=== PATIENT | male | born 1950 | race Caucasian/White ===

== ENCOUNTER 2022-10-14 09:24 | Outpatient (CLI) | payer MEDICARE, SELFPAY ==
--- NOTE | ~2022-10-14 | US_ITS ---
US scrotum doppler INDICATION: Right testicular lump TECHNIQUE: Testicular sonogram utilizing grayscale and color Doppler FINDINGS: The testes are normal in size. Prominent right repeat testes. There is a cyst inferior aspe ct of the right testicle measuring 2.7 cm. There is mild mass effect on the testicle and it is diffic ult to determine if this is intratesticular or extratesticular. The right testes measures 4.1 x 2.3 x 3.5 cm centimeters, and the left testis measures 4.9 x 2.2 x 3.3 cm cm. There is a left epididymal c yst measuring 8 mm. There are bilateral varicoceles. Small left hydrocele. IMPRESSION: 1. Cyst inferior aspect of the right testicle measuring up to 2.7 cm with indistinct margins. Due to the size is difficult to determine if the cyst is intratesticular or extratesticular. 2: Left epididymal cyst measuring 8 mm. 3: Bilateral varicoceles. Reviewed, dictated and finalized at location A. S TECHNICIAN/INSTALLER IMPRESSION: 1. Cyst inferior aspect of the right testicle measuring up to 2.7 cm with lucas stinct margins. Due to the size is difficult to determine if the cyst is intrat esticular or extratesticular. 2: Left epididymal cyst measuring 8 mm. 3: Bilateral varicoceles.
== END 2022-10-14 09:25 | disposition home or self-care (01) ==
PROVIDERS: PCP Family Medicine; Visit Provider Nurse Practitioner Family
DX: I86.1 Scrotal varices (principal); N50.3 Cyst of epididymis
CPT/HCPCS: 76870; 93976

== ENCOUNTER 2023-05-14 04:50 | Day surgery (SDC) | payer MEDICARE, SELFPAY ==
[2023-04-29 12:38] VITALS: BMI 31.1
--- NOTE | 2023-05-13 15:05 | PM.HPGS ---
History of Present Illness History of Present Illness Consent: Risks, benefits, and alternatives have been discussed and questions answered. Patient agrees to proceed with procedure. Chief complaint: GERD, neoplasm screening Narrative: Thomas Romero is a 72 year old male Referred for investigation of dysphagia and reflux symptoms. About 5 years ago he underwent EGD and had esophageal dilatation for hypertrophy of the distal esophagus. Subsequent motility study was done but was said to be normal. He is due for colon cancer screening. His mother had colon cancer. Review of Systems Review of Systems: All systems reviewed & are unremarkable except as noted in HPI and below PMFSH Past Medical History Medical History Adult BMI 34.0-34.9 kg/sq m Adverse effect of rvovvssyxti-typdgaapzc-cihzlr inhibitors, initial encounter BMI 31.0-31.9,adult Body mass index [BMI] 36.0-36.9, adult (06/20/19) Body mass index [BMI] 37.0-37.9, adult (05/16/19) BPH w/o urinary obs/LUTS Chest discomfort Chest pain in adult Chronic fatigue Combined arterial insufficiency and corporo-venous occlusive erectile dysfunction Cough due to OBEY inhibitor Dietary counseling and surveillance (11/21/18) Diverticulitis of large intestine without perforation or abscess KATZ (dyspnea on exertion) Edema of both legs Elevated cholesterol Encounter for screening for lipoid disorders Encounter for screening for malignant neoplasm of prostate Enlarged prostate with lower urinary tract symptoms (LUTS) Essential hypertension Family hx of colon cancer Gastro-esophageal reflux disease with esophagitis Gastro-esophageal reflux disease without esophagitis Hymenoptera allergy Obesity (BMI 35.0-39.9 without comorbidity) Other and unspecified hyperlipidemia Overweight (11/20/16) PAT (paroxysmal atrial tachycardia) Pharyngoesophageal dysphagia Polyarthritis Post-traumatic osteoarthritis of left wrist Pure hypercholesterolemia Restless legs syndrome Screening for colon cancer Sinus arrhythmia Urinary incontinence, male, stress Surgical History Surgical History H/O cataract removal with insertion of prosthetic lens History of cholecystectomy History of knee replacement History of surgery on wrist Family History Family History Mother Carcinoma of colon, Onset Age: 77 Father Family history of renal failure Hypertension, Onset Age: 77 Malignant neoplasm of prostate Family history of congestive heart failure, Onset Age: 77 Sibling Family history of heart disease in male family member before age 55 Family history of cardiac disorder Family history of cardiovascular disease Sibling Other Cerebrovascular accident Family history of allergic disorder Family history of coronary artery disease Family history of malignant neoplasm Social History Social History Smoking packs per day: 3 Smoking cigarettes per day: 60.0 Years smoked: 23 Smoking pack-years: 69.00 Smoking status: Former smoker Tobacco type: cigarettes Second hand tobacco smoke exposure: Yes Smoking end date: 11/15/79 Alcohol intake: never Substance use: never Substance use type: does not use Lack of Transportation: No Lack of Food: Never True Current Housing: I Have Housing Concerned About Future Housing: No Difficulty Paying Gas/Electric Bills: No Difficulty Paying for Meds: No Currently Unemployed: No Education: Trade/Vocational Certificate Living arrangements: with family Occupation/Education: retired Additional occupation/education comments: shipping support Gender identity (if verbalized by the patient): Male Spiritual care concerns: No Meds Home Medications and Al
[2023-05-14 10:24] VITALS: BP 128/79; PULSE 63; RESP 18; TEMP 36.3; O2SAT 99; BMI 32.2
[2023-05-14] MEDS: LACTATED RINGERS 1,000 ML 150 ML IV CONT (10:28)
--- NOTE | 2023-05-14 10:57 | WPDANESEPPF ---
Anes - Initial Pre Proc Eval Procedure: Operation Date: 05/14/23 11:15 Proposed Procedures p Esophagogastroduodenoscopy & Screening Colonoscopy - Antony Lee MD Date/Time: 05/14/23 10:57 Surgeon: Antony Lee MD Pre Op Diagnosis: GERD, neoplasm screening Patient Data Age: 72 Gender: M Height: 1.73 m Weight: 96.1 kg Last Vital Signs Temp 97.4 F L 05/14/23 10:24 Pulse 63 05/14/23 10:24 Resp 18 05/14/23 10:24 BP 128/79 05/14/23 10:24 Pulse Ox 99 05/14/23 10:24 O2 Del Method Room Air 05/14/23 10:24 Allergies Allergy/AdvReac Type Severity Reaction Status Date / Time amlodipine Allergy Unknown Unknown Verified 05/14/23 10:22 bee venom protein (honey bee) Allergy Unknown Unknown Verified 05/14/23 10:22 isosorbide Allergy Unknown Unknown Verified 05/14/23 10:22 venom-wasp Allergy Unknown Unknown Verified 05/14/23 10:22 Home Medications Medication Instructions Recorded Confirmed Type epinephrine 0.3 mg/0.3 mL 0.3 mg IM ONCE 09/22/19 04/29/23 History injection, auto-injector (EpiPen) ropinirole 0.25 mg tablet (Requip) 0.25 mg PO DAILY 06/18/20 05/14/23 History cholecalciferol (vitamin D3) 10 10 mcg PO DAILY 07/28/22 05/14/23 History mcg (400 unit) capsule vitamin B complex (B 1 tablet PO DAILY 07/28/22 04/29/23 History Complex-Vitamin B12 tablet) losartan 100 mg tablet 100 mg PO DAILY #90 tabs 10/12/22 05/14/23 Rx hydrochlorothiazide 25 mg tablet 25 mg PO DAILY #90 tabs 11/13/22 05/14/23 Rx hydralazine 50 mg tablet 50 mg PO BID #180 tabs 12/09/22 05/14/23 Rx furosemide 20 mg tablet See Rx Instructions .Route 03/01/23 05/14/23 Rx .COMPLEX #30 tabs carvedilol 6.25 mg tablet See Rx Instructions .Route 04/21/23 05/14/23 Rx .COMPLEX #60 tabs famotidine 40 mg tablet 40 mg PO DAILY 04/29/23 05/14/23 History folic acid 1 mg tablet 1 mg PO DAILY 04/29/23 05/14/23 History mirabegron 25 mg tablet,extended 25 mg PO DAILY 04/29/23 05/14/23 History release 24 hr (Myrbetriq) Patient hx anesthesia problems: none Family hx anesthesia problems: none Results Review: All pre-operative results and documents have been reviewed as part of the pre-operative evaluation. [facility] Past Medical History Medical History Adult BMI 34.0-34.9 kg/sq m Adverse effect of nunsxvjpjzf-iweucnctln-bpsrca inhibitors, initial encounter BMI 31.0-31.9,adult Body mass index [BMI] 36.0-36.9, adult (06/20/19) Body mass index [BMI] 37.0-37.9, adult (05/16/19) BPH w/o urinary obs/LUTS Chest discomfort Chest pain in adult Chronic fatigue Combined arterial insufficiency and corporo-venous occlusive erectile dysfunction Cough due to OBEY inhibitor Dietary counseling and surveillance (11/21/18) Diverticulitis of large intestine without perforation or abscess KATZ (dyspnea on exertion) Edema of both legs Elevated cholesterol Encounter for screening for lipoid disorders Encounter for screening for malignant neoplasm of prostate Enlarged prostate with lower urinary tract symptoms (LUTS) Essential hypertension Family hx of colon cancer Gastro-esophageal reflux disease with esophagitis Gastro-esophageal reflux disease without esophagitis Hymenoptera allergy Obesity (BMI 35.0-39.9 without comorbidity) Other and unspecified hyperlipidemia Overweight (11/20/16) PAT (paroxysmal atrial tachycardia) Pharyngoesophageal dysphagia Polyarthritis Post-traumatic osteoarthritis of left wrist Pure hypercholesterolemia Restless legs syndrome Screening for colon cancer Sinus arrhythmia Urinary incontinence, male, stress Surgical History Surgical History H/O cataract removal with insertion of prosthetic lens History of cholecystectomy History of knee replacement History of surgery on wrist Family History Family History Mother Carcinoma of colon, O
[2023-05-14] MEDS: BENZOCAINE (*SP) 60 ML SPRAY CAN (HURRICAINE) 1 SPRAY MUCOUS MEM (11:10)
--- NOTE | 2023-05-14 11:23 | SUR.OPER ---
EGD ended 111 colonoscopy started 112
[2023-05-14 11:48] VITALS: BP 137/73; PULSE 68; RESP 27; O2SAT 98
[2023-05-14 11:58] VITALS: BP 141/79; PULSE 63; RESP 24; O2SAT 100
[2023-05-14 12:08] VITALS: BP 144/81; PULSE 57; RESP 17; O2SAT 100
== END 2023-05-14 12:33 | disposition home or self-care (01) ==
PROVIDERS: PCP Family Medicine; Visit Provider Internal Medicine Gastroenterology
PROC: 0DJ08ZZ Inspection of Upper Intestinal Tract, Via Natural or Artificial Opening Endoscopic (ICD-10-PCS; CPT 43235; principal; 2023-05-14 11:15)
DX: Z12.11 Encounter for screening for malignant neoplasm of colon (principal); K57.30 Diverticulosis of large intestine without perforation or abscess without bleeding; D12.2 Benign neoplasm of ascending colon; K63.5 Polyp of colon; Z80.0 Family history of malignant neoplasm of digestive organs; K22.2 Esophageal obstruction; K31.7 Polyp of stomach and duodenum; E78.00 Pure hypercholesterolemia, unspecified; I10 Essential (primary) hypertension; K21.9 Gastro-esophageal reflux disease without esophagitis; G25.81 Restless legs syndrome; Z87.891 Personal history of nicotine dependence; E66.9 Obesity, unspecified; Z68.32 Body mass index [BMI] 32.0-32.9, adult
CPT/HCPCS: 43249; 45380; 45385; 88305; C1726; J2704; J7120

== ENCOUNTER 2023-12-08 14:29 | Outpatient (CLI) | payer MEDICARE, SELFPAY ==
--- NOTE | ~2023-12-08 | XR_ITS ---
EXAMINATION: XR chest 2V 12/08/2023 14:48 INDICATION: Chest pain and shortness of breath PROCEDURE: 2 view chest COMPARISON: Comparison to multiple prior studies sequentially, with oldest reviewed study dated 11/30. FINDINGS: The lungs are clear. The cardiomediastinal silhouette is within normal limits. There are no pleural effusions. There is no pneumothorax suspected. IMPRESSION: 1: NO ACUTE CARDIOPULMONARY DISEASE. Reviewed, dictated and finalized at location B. ISH MELTER HELPER
--- NOTE | 2023-12-08 14:47 | ECG_ITS ---
Measurements Intervals [place] Rate: 81 P: [place]: 0 QRS: 11 QRSD: 89 T: 13 QT: 372 QTc: 433 Interpretive Statements SINUS RHYTHM ATRIAL AND VENTRICULAR PREMATURE COMPLEXES VOLTAGE CRITERIA FOR LVH BORDERLINE ECG NO PREVIOUS ECG AVAILABLE FOR COMPARISON Electronically Signed On 12-08-2023 15:14:33 HAM SMOKER by Arslan Finch D.O.
== END 2023-12-08 14:30 | disposition home or self-care (01) ==
PROVIDERS: PCP Family Medicine; Visit Provider Physician Assistant
DX: R07.9 Chest pain, unspecified (principal); R06.02 Shortness of breath
CPT/HCPCS: 71046; 93005

== ENCOUNTER 2023-12-09 13:39 | Outpatient (CLI) | payer MEDICARE, SELFPAY ==
--- NOTE | ~2023-12-09 | CT_ITS ---
EXAMINATION: CTA chest PE protocol DATE: 12/09/2023 14:52 LAND RECLAMATION SPECIALIST INDICATION: Chest pain, shortness of breath and elevated d-dimer. TECHNIQUE: Computed tomographic angiography (CTA) of the chest was performed with 100 mL Omnipaque-35 0 intravenous contrast. The dose-length product was 634.52 mGy-cm. Maximum intensity projection 3D-re constructions of the aorta and other arteries were constructed by the technologist on a separate work station. Automated exposure control and iterative reconstruction technique were employed. COMPARISON: None. FINDINGS: No significant pleural or pericardial effusion. Heart size normal. Small hiatal hernia. No significant pleural or pericardial effusion. Study is technically adequate without evidence for pulmo nary embolism. Status post cholecystectomy. There are liver cysts. No endobronchial lesions. No pneum othorax. No focal airspace consolidation. No suspicious pulmonary nodules or masses. IMPRESSION: 1. No acute cardiopulmonary disease. No evidence for pulmonary embolism. Reviewed, dictated and finalized at location L. RECLAMATION SPECIALIST
== END 2023-12-09 13:40 | disposition home or self-care (01) ==
LOC: ANHIMG 13:40
PROVIDERS: PCP Family Medicine; Visit Provider Physician Assistant
DX: R07.1 Chest pain on breathing (principal); R06.02 Shortness of breath; R79.89 Other specified abnormal findings of blood chemistry
CPT/HCPCS: 71275; Q9967

== ENCOUNTER 2024-01-10 08:23 | Outpatient (CLI) | payer MEDICARE, SELFPAY ==
--- NOTE | ~2024-01-10 | NM_ITS ---
EXAMINATION: NM vinny stress w perfusion DATE: 01/10/2024 11:55 INDICATION: Chest pain on breathing. TECHNIQUE: Rest images were obtained following intravenous administration of 10.44 mCi Tc99m tetrofos min (Myoview). The patient was infused intravenously with Lexiscan (regadenoson). Then, 31 mCi Tc99m tetrofosmin (Myoview) was administered intravenously, and stress images were obtained. Data was recon structed into short axis and horizontal and vertical long axis SPECT images. Gated SPECT images were also obtained. COMPARISON: Myocardial perfusion imaging 06/13/2019, chest CT 12/09/2023 FINDINGS: There is a small, mild, fixed perfusion defect involving apical lateral segment of left rolanda tricle, consistent with infarct. No reversible component to suggest ischemia. There is no segmental wall motion abnormality. Left ventricular ejection fraction measures 52%. IMPRESSION: 1. 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 2. Normal left ventricular ejection fraction measuring 52%. Reviewed, dictated and finalized at location A. LACER IMPRESSION: 1. Small area of mild infarct involving apical lateral segment of left ventricl e. 2. Normal left ventricular ejection fraction measuring 52%.
--- NOTE | 2024-01-10 08:42 | EST_ITS ---
Patient Info Name: Thomas Romero Age: 73 years : 1950 Gender: Male Ht: 68 in Wt: 220 lbs BSA: 2.22 m2 HR: 51 bpm BP: 138 / 81 mmHg Exam Date: 01/10/2024 10:32 AM Exam Location: Echo Lab Patient Status: Outpatient Admit Date: 01/10/2024 Staff Ordering Physician: Arslan Finch DO Attending Provider: Arslan Finch DO Exercise Technologist: Neeru Hutson RDCS Exercise Physician: Arslan Finch DO Exam Type: CA stress vinny w NM Study Info A regadenoson stress test was performed. Summary 1. 1. Negative lexiscan stress test for ischemic ST changes by ECG criteria. 2. 2. Stable hemodynamics throughout the test. 3. 3. Nuclear scan to follow and will be reported separately. Please correlate with it. 4. 4. Patient informed of the above results. Protocol: Lexiscan Stress ECG Details Stage: REST Duration (min): 5 min : 35 sec HR (bpm): 51 SBP (mmHg): 138 DBP (mmHg): 81 Stage: REST Duration (min): 16 min : 13 sec HR (bpm): 54 SBP (mmHg): 138 DBP (mmHg): 81 Stage: STAGE 1 Duration (min): 1 min : 0 sec HR (bpm): 70 SBP (mmHg): 151 DBP (mmHg): 97 Stage: RECOVERY Duration (min): 1 min : 0 sec HR (bpm): 83 SBP (mmHg): 151 DBP (mmHg): 97 Stage: RECOVERY Duration (min): 2 min : 0 sec HR (bpm): 83 SBP (mmHg): 151 DBP (mmHg): 97 Stage: RECOVERY Duration (min): 3 min : 0 sec HR (bpm): 73 SBP (mmHg): 142 DBP (mmHg): 91 Stage: RECOVERY Duration (min): 3 min : 5 sec HR (bpm): 75 SBP (mmHg): 142 DBP (mmHg): 91 Rest HR: 54 bpm Peak HR: 87 bpm Rest Sys BP: 138 mmHg Peak Sys BP: 151 mmHg Max Pred HR: 147 bpm % Max Pred HR: 59 % Target HR: 125 bpm Max RPP: 13,137 bpm*mmHg Termination Reason: Completed protocol Cardiac Symptoms: Shortness of breath Total Time: 1 min : 0 sec Rest Jeronimo BP: 81 mmHg Peak Jeronimo BP: 97 mmHg Total Dose: 0.4 mg Resting ECG Sinus bradycardia, borderline ST-T wave abnormality in inferior leads. Stress ECG No ST changes. Arrhythmias None. Report Signatures
--- NOTE | 2024-01-10 08:42 | ECHO_ITS ---
Patient Info Name: Thomas Romero Age: 73 years : 1950 Gender: Male Ht: 68 in Wt: 220 lbs BSA: 2.22 m2 HR: 57 bpm BP: 174 / 100 mmHg Technical Quality: Fair Exam Date: 01/10/2024 8:50 AM Exam Location: Echo Lab Patient Status: Outpatient Admit Date: 01/10/2024 Staff Ordering Physician: Arslan Finch DO [employer] Senior Specialist: Jody Redd RDCS Attending Provider: Arslan Finch DO Referring Physician: Stef SOTO; Exam Type: CA echo dop color flow w con Study Info Indications R06.09 - Other forms of dyspnea Complete two-dimensional, color flow and Doppler transthoracic echocardiogram is performed with contrast to opacify the left ventricle and to improve the deliniation of the left ventricle endocardial borders. Contrast/Agitated Saline Contrast/Ag. Saline: Definity Amount: 2.00 ml Administered By: Jody Redd RDCS New IV Access: Antecubital Space and Left Site Condition: No extravasation Summary 1. Definity contrast administered improved wall motion interpretation. 2. Left ventricular chamber dimension is mildly enlarged. 3. Left ventricular systolic function is normal, estimated at 55-60%. 4. The left ventricular diastolic function is grade I diastolic dysfunction. 5. Left atrial chamber dimension is mildly enlarged. 6. There is mild aortic valve sclerosis. 7. There is mild mitral valve regurgitation. 8. There is mild to moderate tricuspid valve regurgitation. 9. No pulmonary hypertension, estimated pulmonary arterial systolic pressure is 38 mmHg. 10. There is trace pulmonic regurgitation. Left Ventricle Tissue doppler E/e' is not performed. Definity contrast administered improved wall motion interpretation. Left ventricular chamber dimension is mildly enlarged. Left ventricular systolic function is normal, estimated at 55-60%. The left ventricular diastolic function is grade I diastolic dysfunction. Right Ventricle Right ventricular systolic function is normal and with normal TAPSE 3.1 cm. Right ventricular chamber dimension is normal. Left Atria Left atrial chamber dimension is mildly enlarged. Right Atria Right atrial chamber dimension is normal. Aortic Valve The aortic valve is trileaflet. There is mild aortic valve sclerosis. There is no aortic valve stenosis. There is no aortic valve regurgitation. Pulmonic Valve There is trace pulmonic regurgitation. Mitral Valve There is no mitral valve stenosis. There is mild mitral valve regurgitation. Tricuspid Valve There is mild to moderate tricuspid valve regurgitation. No pulmonary hypertension, estimated pulmonary arterial systolic pressure is 38 mmHg. Pericardium/Pleural There is no pericardial effusion. Inferior Vena Cava Normal inferior vena cava with >50% collapse upon inspiration consistent with normal right atrial pressure, 5 mmHg. Aorta The aortic root size at the sinus of Valsalva is normal. Left Ventricular Outflow Tract Name Value Normal LVOT 2D LVOT Diameter 2.02 cm LVOT Doppler LVOT Peak Gradient 4 mmHg LVOT Mean Gradient 2 mmHg LVOT VTI 24.54 cm LVOT VTI/AV VTI Ratio
[2024-01-10] MEDS: PERFLUTREN LIPID MICROSPHERES 1.5 ML VIAL DILUTED TO 10 ML TOTAL VOLUME IV PUSH (09:22)
--- NOTE | 2024-01-10 10:15 | IVDEFINITY ---
Prior to administration of IV Definity the patient was educated on the risks and benefits of the imaging enhancing agent including potential adverse side effects. The patient verbalized understanding. Allergies were verified. No exclusion criteria were identified and at least one of the following inclusion criteria were met: 1) physician request, 2) patient technically difficult to image (per the [place] Society of Echocardiography guidelines of two or more segments not discernable within the apical view), or 3) questionable left ventricular function. ?
== END 2024-01-10 08:24 | disposition home or self-care (01) ==
PROVIDERS: PCP Family Medicine; Visit Provider Internal Medicine Cardiovascular Disease
DX: R06.09 Other forms of dyspnea (principal); R07.1 Chest pain on breathing
CPT/HCPCS: 78452; 93017; A9502; C8929; J2785; Q9957

== ENCOUNTER 2024-01-26 10:05 | Outpatient (CLI) | payer MEDICARE, SELFPAY ==
--- NOTE | 2024-02-07 17:11 | WPDPFTINT ---
PFT Procedure Performed PFT Procedure Performed Spirometry with Pre/Post Bronchodilator Plethysmography (Lung Vol) Diffusing Cap (DLCO) Flow Vol Loop PFT Interpretation DOS: 01/26/2020 REQUESTING: Beatriz Dobbs PA-C REASON FOR TESTING: Dyspnea PULMONARY FUNCTION TESTS Results are reliable and reproducible. Spirometry: Pre bronchodilator FEV1 is 2.45 L, 84% predicted, normal. Pre bronchodilator FVC is 3.53 L, 91% predicted, normal. FEV1/FVC is 69%, in the normal range. After bronchodilator administration there is a 3% increase in the FEV1, 2.53 L, 86%, normal. There is no change in the FVC. The FEV1/FVC ratio after bronchodilator is 72%, normal. Lung volumes: Total lung capacity is 5.64 L, 85% predicted, normal. ERV is 0.70 L, 51% predicted, decreased. Residual volume is 2.11 L, 88%, normal. RV/TLC is 37%, normal. Airway resistance is 2.53, 165% predicted, elevated. Diffusion: DLCO is 23.1, 94%, normal.DLCO/VA is 4.78, 121%, normal. Flow volume loop: Normal IMPRESSION: This pulmonary function test shows normal spirometry without response to bronchodilator, normal lung volumes and normal diffusion. There are no prior studies for comparison. Aletha Badillo MD
--- NOTE | 2024-02-07 17:22 | WPDSIXMINUTE ---
Six Minute Walk Procedure Procedure Performed Pulmonary Stress Test (6 min walk) Six Minute Walk Six Minute Walk: DATE OF SERVICE: 01/26/2024 REQUESTING: Beatriz Dobbs PA-C REASON FOR TESTING: dyspnea SIX MINUTE WALK This test was conducted per ATS guidelines. The initial saturation was 97%, and initial heart rate was 65 beats per minute. The patient walked without stopping, completing 1200 ft/365.7 m. The saturation at the end of testing was 95%, and the heart rate was 92 beats per minute. The patient did not use any walking aids. IMPRESSION: This is a normal study. The patient did not require supplemental oxygen with exertion. Distance walked is normal for age. Aletha Badillo MD
== END 2024-01-26 10:06 | disposition home or self-care (01) ==
LOC: ANHPFT 10:08
PROVIDERS: PCP Family Medicine; Visit Provider Physician Assistant
DX: R06.09 Other forms of dyspnea (principal)
CPT/HCPCS: 94060; 94618; 94726; 94729

== ENCOUNTER 2024-02-10 09:11 | Outpatient (CLI) | payer MEDICARE, SELFPAY ==
[2024-02-18 15:19] VITALS: BMI 33.7
--- NOTE | 2024-02-18 15:19 | WPDSLEEPSTUD ---
Sleep Study Date of Study: 02/10/24 Ordering Provider: BALTA Mcknight Interpreting Physician: Shalonda Thorpe DO Sleep Study Type: CPAP Titration Height: 1.73 m Weight: 100.698 kg Body Mass Index: 33.7 Neck Circumference (inches): 16.5 Byers: 5 Reason for Sleep Study The patient had a HSAT through the [place] which showed an overall AHI of 32.2, BENJI 6.6 with desaturation down to 84%. The patient was prescribed AutoPAP. Compliance data showed elevated residual AHI. Sleep History The patient is a 73-year-old with severe sleep apnea that had a PAP titration study ordered by the pulmonary group after reviewing his CPAP compliance data. The patient had recently has a home sleet test done through the [facility] and was prescribed AutoPAP. the patient denies awakening from sleep short of breath. He occasionally awakens at night with heartburn, belching or cough. He constantly snores loudly enough that others complain. He denies having trouble sleeping when he has a cold. He denies waking up gasping for air throughout the night. He denies sweating excessively at night. He denies having heart palpitations or irregular heartbeats during the night. He occasionally falls asleep during the day but never while driving. He denies sleep paralysis, cataplexy and hypnagogic / hypnopompic hallucinations. He denies having trouble at school or work due to sleepiness. He denies feeling afraid of going to sleep. He denies having nightmares. He denies remembering his dreams. He denies having thoughts racing through his mind. He denies feeling sad or depressed. He occasionally has anxiety. He denies having muscular tension. He denies noticing parts of his body jerk. He denies having leg pain during the night. He denies grinding his teeth during sleep and denies awakening with morning jaw pain. He is occasionally bothered by pain during the day but never awakened by pain during the night. He denies waking up feeling stiff in the morning. He denies waking up with sore or achy muscles. He denies waking up with pain in the neck, spine and other joints. He goes to bed at 10:30 p.m. on both weekdays and weekends. He can fall asleep relatively quickly. He wakes up 1-2 times throughout the night to urinate and is able to fall back asleep relatively quickly. He wakes up between 6-7 a.m. on both weekdays and weekends. He typically gets 6-8 hours of sleep per night. He does not stay in bed after waking up in the morning. He currently lives with his . He denies consuming any caffeinated beverages within 2 hours of bedtime. He denies engaging in physical exercise before bedtime. He will watch television before falling asleep. He denies taking naps in afternoon or the evening. He consumes 1-2 caffeinated beverages per day. He denies tobacco, alcohol and recreational use. [facility] Past Medical History Medical History Adult BMI 34.0-34.9 kg/sq m Adverse effect of qspsrjjfxsf-kcynidwbjv-qrwllc inhibitors, initial encounter BMI 31.0-31.9,adult BMI 32.0-32.9,adult Body mass index [BMI] 36.0-36.9, adult (06/20/19) Body mass index [BMI] 37.0-37.9, adult (05/16/19) BPH w/o urinary obs/LUTS Chest discomfort Chest pain in adult Chronic fatigue Combined arterial insufficiency and corporo-venous occlusive erectile dysfunction Cough due to OBEY inhibitor Dietary counseling and surveillance (11/21/18) Diverticulitis of large intestine without perforation or abscess KATZ (dyspnea on exertion) Edema of both legs Elevated cholesterol Encounter for screening for lipoid disorders Encounter for screening for malignant neoplasm of prostate Enlarged prostate with lower urinary tract symptoms (LUTS) Essential hypertension Family hx of colon cancer Gastro-esophageal reflux disease with esophagitis Gastro-esophageal reflux disease without esophagitis Hymenoptera allergy Obesity (BMI 35.0-39.9 without comorbidit
== END 2024-02-11 07:25 | disposition home or self-care (01) ==
PROVIDERS: PCP Family Medicine; Visit Provider Physician Assistant
DX: G47.33 Obstructive sleep apnea (adult) (pediatric) (principal)
CPT/HCPCS: 95811

== ENCOUNTER 2024-04-12 15:40 | Outpatient (CLI) | payer MEDICARE, SELFPAY ==
--- NOTE | ~2024-04-12 | XR_ITS ---
EXAM: XR knee RT 3V DATE: 04/12/2024 16:08 HISTORY: S89.91XA - FALL. POKING PAIN LATERAL SIDE OF KNEE . COMPARISON: None available. FINDINGS: Normal mineralization. Uncomplicated appearing knee arthroplasty hardware. Small-volume arlette int fluid. No fracture or dislocation. No lytic or blastic lesion. Joint spaces are maintained. No er osion or periosteal change. Soft tissues within normal limits. IMPRESSION: No acute osseous finding in the right knee. No radiographic evidence of hardware related complication. Small right knee joint effusion. Reviewed, dictated and finalized at location K. IMPRESSION: No acute osseous finding in the right knee. No radiographic evidenc e of hardware related complication. Small right knee joint effusion.
== END 2024-04-12 15:41 | disposition home or self-care (01) ==
LOC: ANHIMG 15:42
PROVIDERS: PCP Family Medicine; Visit Provider Nurse Practitioner Adult Health
DX: M25.461 Effusion, right knee (principal); W19.XXXA Unspecified fall, initial encounter
CPT/HCPCS: 73562

== ENCOUNTER 2024-10-09 12:30 | Outpatient (RCR) | payer MEDICARE, SELFPAY ==
--- NOTE | 2024-08-21 11:04 | OPREHPOC ---
Outpatient Therapy Plan of Care This is a Multidisciplinary Plan of Care that may contain components documented by all disciplines (PT, OT, and ST.) PT Problem 1 PT Problem #1 Knowledge Deficit PT Goal 1 Goal / Goal Update Pt to be IND with issued HEP Target Visit 8 PT Problem 2 PT Problem #2 Pain PT Goal 1 Goal / Goal Update Pt to report shoulder pain no greater than 4/10 with functional tasks. Target Visit 8 PT Problem 3 PT Problem #3 Impaired Range of Motion PT Goal 1 Goal / Goal Update Pt to improve active shoulder flexion and abduction to 120 deg to demonstrate improved functional mobility. Target Visit 8 PT Problem 4 PT Problem #4 Impaired Strength PT Goal 1 Goal / Goal Update Pt to demonstrate 5lb overhead lift to be able to return to full participation in his exercise program. Target Visit 8
--- NOTE | 2024-08-21 11:05 | PTOPEVAL1 ---
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 He states his shoulder feels the same as it did years ago. He states he got an injection and it only lasted for 1 day. He states he knows he is going to have to have surgery. He states it is nearly impossible to sleep d/t his pain, gets up to an 8-9/10. He states he is unable to reach his arm over head without extreme pain. He enjoys fishing but has been unable to fish d/t his pain. Reported Pain Level Pain Score 0: Self Report Assessment PT Clinical Summary Pt presents to therapy today for his initial evaluation with a diagnosis of R shoulder pain, imaging shows degenerative arthritis. Today he demonstrates s/s consistent with advances shoulder OA. There is significant ROM limitations in all directions when compared to his L shoulder, he is unable to reach overhead for functional tasks. His shoulder strength is limited by pain. Skilled therapy services are indicated to address the deficits noted above, to manage pain, and to improve functional mobility. Plan of Care Interventions Electrical Stimulation,Hot Pack/Cold Pack,Manual Therapy,Neuro Re-education,Patient/Caregiver Educati,Therapeutic Activities,Therapeutic Exercise PT Services Indicated Yes Treatment Frequency and 2x/wk for 8 visits Duration These treatments will address the objective and functional deficits as defined above. The patient will be advanced safely and appropriately in order for the patient to progress towards his/her prior level of function. Additional exercises will be introduced and as well as a comprehensive home exercise program upon discharge, if needed, ?to ensure carryover of functional gains achieved in the clinic. This treatment plan has been reviewed and agreement upon by the patient.
--- NOTE | 2024-09-14 14:40 | PTOPPROG ---
Assessment and note entered by Valdo Irby, PT, DPT Evaluation Information Assessment Status Progress Diagnosis R shoulder pain ICD-10 Condition Codes (PT) M25.512,Weakness R53.1 Subjective Information Pt states he feels like he is progressing, he states his ROM has improved as has the pain but he is still more limited then he would like. He states he is sleeping much better than when he started therapy. He states he has fully returned to his exercise program without any limitations. Assessment PT Clinical Summary Pt presents to therapy today for his progress report following 8 visits of skilled therapy to treat his diagnosis of R shoulder pain, imaging shows degenerative arthritis. Today he demonstrates good ROM improvements rikki, his R shoulder is still lacking ROM from functional levels and when compared to his L shoulder. His pain has also improved significantly to where he can demonstrate more strength and function. Continuation of skilled therapy services are indicated to continue progress towards goals, and to improve functional mobility. Plan of Care Interventions Electrical Stimulation,Hot Pack/Cold Pack,Manual Therapy,Neuro Re-education,Patient/Caregiver Educati,Therapeutic Activities,Therapeutic Exercise PT Services Indicated Yes Treatment Frequency and 2x/wk for 8 visits Duration These treatments will address the objective and functional deficits as defined above. The patient will be advanced safely and appropriately in order for the patient to progress towards his/her prior level of function. Additional exercises will be introduced and as well as a comprehensive home exercise program upon discharge, if needed, ?to ensure carryover of functional gains achieved in the clinic. This treatment plan has been reviewed and agreement upon by the patient.
--- NOTE | 2024-10-04 08:20 | PCPTNOTE ---
Patient called to cancel due to illness on 10/04/24.
--- NOTE | 2024-10-06 11:41 | PCPTNOTE ---
Patient no showed 10/06/24. Called and patient states he is ill and cannot come in.
--- NOTE | 2024-10-11 12:54 | PCPTNOTE ---
Patient did not show up for scheduled appointment this date.
--- NOTE | 2024-10-11 12:56 | PTOPDC ---
Assessment and note entered by Valdo Irby, PT, DPT Evaluation Information Assessment Status Discharge - Pt Not Present Diagnosis R shoulder pain ICD-10 Condition Codes (PT) M25.512,Weakness R53.1 Subjective Information Pt no showed for todays appointment, called and spoke with him as today was his last scheduled visit. Pt states he is doing well and was planning to be discharged today. Assessment PT Clinical Summary Pt completed 12 visits of skilled therapy. He will be d/c'ed at this time per pt request as he states he is doing well.
== END 2024-10-11 13:37 | disposition home or self-care (01) ==
LOC: ANHGOSHPT 12:30
PROVIDERS: PCP Family Medicine; Visit Provider Orthopaedic Surgery
DX: M25.511 Pain in right shoulder (principal)
CPT/HCPCS: 97110; 97112; 97140; 97161; 97530